=== PATIENT | male | born 1940 | race Caucasian/White ===

== ENCOUNTER → 2017-11-29 | Outpatient (CLI) | payer MEDICARE ==
[2017-11-29 09:36] LABS: ANION GAP 10 (5-19); BLOOD UREA NITROGEN 14 mg/dL (7-20); CALCIUM 9.2 mg/dL (8.4-10.2); CARBON DIOXIDE 26 mmol/L (22-30); CHLORIDE 104 mmol/L (98-107); GLUCOSE 195 mg/dL (75-110); POTASSIUM 4.3 mmol/L (3.6-5.0); SODIUM 140.1 mmol/L (137-145)
[2017-11-29 09:37] LABS: VANCOMYCIN,TROUGH 15.6 ug/mL (5.0-20.0)
== END ==
LOC: LHC 08:53
PROVIDERS: ATTEND Internal Medicine
DX: M47.26 Other spondylosis with radiculopathy, lumbar region (principal); M86.10 Other acute osteomyelitis, unspecified site
CPT/HCPCS: 80048; 80202